=== PATIENT | male | born 1980 | race Caucasian/White ===

== ENCOUNTER → 2023-06-07 10:30 | Outpatient (BNVA) | payer OTHER, SELFPAY | PROVIDERS: Visit Provider Emergency Medicine | DX: R50.9 Fever, unspecified (principal) | CPT/HCPCS: 87400 ==

== ENCOUNTER → 2023-08-28 08:20 | Outpatient (BNVA) | payer OTHER, SELFPAY | PROVIDERS: PCP Family Medicine; Visit Provider Family Medicine | DX: R79.89 Other specified abnormal findings of blood chemistry (principal); R53.82 Chronic fatigue, unspecified; Z11.59 Encounter for screening for other viral diseases; E55.9 Vitamin D deficiency, unspecified; E29.1 Testicular hypofunction | CPT/HCPCS: 80053; 80061; 82306; 83002; 84403; 84443; 85025; 86803 ==

== ENCOUNTER → 2023-12-02 08:45 | Outpatient (BNVA) | payer OTHER, SELFPAY | PROVIDERS: PCP Family Medicine; Visit Provider Family Medicine | DX: Z11.4 Encounter for screening for human immunodeficiency virus [HIV] (principal); E03.9 Hypothyroidism, unspecified; E29.1 Testicular hypofunction; R79.89 Other specified abnormal findings of blood chemistry | CPT/HCPCS: 84403; 84439; 84443; 87806 ==

== ENCOUNTER → 2024-01-27 09:00 | Outpatient (BNVA) | payer OTHER, SELFPAY | PROVIDERS: PCP Family Medicine; Visit Provider Family Medicine | DX: E03.9 Hypothyroidism, unspecified (principal); R79.89 Other specified abnormal findings of blood chemistry; R74.8 Abnormal levels of other serum enzymes; E29.1 Testicular hypofunction | CPT/HCPCS: 80053; 84403; 84439; 84443 ==

== ENCOUNTER → 2024-04-22 07:28 | Outpatient (BNVA) | payer OTHER, SELFPAY | PROVIDERS: PCP Family Medicine; Visit Provider Family Medicine | DX: E55.9 Vitamin D deficiency, unspecified (principal); E03.9 Hypothyroidism, unspecified; R79.89 Other specified abnormal findings of blood chemistry; R74.8 Abnormal levels of other serum enzymes; E29.1 Testicular hypofunction | CPT/HCPCS: 80053; 82306; 84403; 84439; 84443; 85027 ==

== ENCOUNTER → 2024-08-25 08:33 | Outpatient (BNVA) | payer OTHER, SELFPAY | PROVIDERS: PCP Family Medicine | DX: E03.9 Hypothyroidism, unspecified (principal); R79.89 Other specified abnormal findings of blood chemistry; D75.1 Secondary polycythemia; E29.1 Testicular hypofunction | CPT/HCPCS: 84403; 84439; 84443; 85027 ==

== ENCOUNTER → 2024-10-18 11:15 | Outpatient (BNVA) | payer OTHER, SELFPAY | PROVIDERS: PCP Family Medicine; Visit Provider Family Medicine | DX: E29.1 Testicular hypofunction (principal); E03.9 Hypothyroidism, unspecified | CPT/HCPCS: 82040; 84270; 84403; 84443 ==

== ENCOUNTER → 2025-01-30 09:00 | Outpatient (BNVA) | payer OTHER, SELFPAY | PROVIDERS: Family Provider Family Medicine; PCP Family Medicine; Visit Provider Family Medicine | DX: E55.9 Vitamin D deficiency, unspecified (principal); E03.9 Hypothyroidism, unspecified; R79.89 Other specified abnormal findings of blood chemistry; I10 Essential (primary) hypertension; R74.8 Abnormal levels of other serum enzymes; D75.1 Secondary polycythemia; E29.1 Testicular hypofunction | CPT/HCPCS: 80053; 82306; 84403; 84439; 84443; 85025 ==